=== PATIENT | male | born 1975 | race Caucasian/White ===

== ENCOUNTER 2023-05-05 18:47 | Emergency (ER) | payer SELFPAY ==
[2023-05-05] MEDS ORDERED: Metoprolol Tartrate 50 MG Tab PO ONE (19:14)
== END 2023-05-05 19:32 | disposition home or self-care (01) ==
LOC: MW.ED 18:47
DX: I10 Essential (primary) hypertension (principal); Z76.0 Encounter for issue of repeat prescription; Z86.73 Personal history of transient ischemic attack (TIA), and cerebral infarction without residual deficits; Z79.899 Other long term (current) drug therapy
CPT/HCPCS: 99281; A9270; 99284